=== PATIENT | female | born 1980 | race Caucasian/White ===

== ENCOUNTER 2018-11-15 22:36 | Emergency (ER) | payer BC ==
[~2018-11-15] VITALS: Ht 167.6 cm; Wt 114.9 kg
[~2018-11-15 22:36] MED LIST: ACET-6134 PO
[2018-11-15 22:40] VITALS: BP 111/74
--- NOTE | 2018-11-15 22:40 | NUR ---
TO LOBBY A/W BED, AMBULATORY
--- NOTE | 2018-11-15 23:10 | NUR ---
PT PRESENTS W/C/O LEFT SHOULDER PAIN ASSOCIATED W/ NUMBNESS FOR 2 MONTHS. PT HAS FULL ROM. +CMS. CAP REFILL<3. PERIPHERAL PULSES PRESENT. COLOR WNL. AAOX4, GCS 15
--- NOTE | 2018-11-15 23:57 | NUR ---
Dr. Alcaraz examining patient.
[2018-11-16] MEDS ORDERED: DIAZEPAM 5 MG TAB PO ONE (00:20)
[2018-11-16] MEDS ORDERED: KETOROLAC 30 MG/ML VIAL IM ONE (00:20)
--- NOTE | 2018-11-16 01:04 | NUR ---
PT RETURN FROM RAD
[2018-11-16] MEDS ORDERED: MORPHINE SULFATE 4 MG/ML SYR IM ONE (01:35)
[2018-11-16 02:11] VITALS: BP 116/69
--- NOTE | 2018-11-16 02:12 | NUR ---
Patient discharged with v/s stable. Written and verbal after care instructions given and explained. Patient alert, oriented and verbalized understanding of instructions. Ambulatory with steady gait. All questions addressed prior to discharge. ID band removed. Patient advised to follow up with PMD. Rx of VALIUM, NAPROXYN given. Patient educated on indication of medication including possible reaction and side effects. Opportunity to ask questions provided and answered.
== END 2018-11-16 02:12 | disposition home or self-care (01) ==
LOC: MED 22:36
DX: M54.12 Radiculopathy, cervical region (principal); M62.838 Other muscle spasm; Z88.0 Allergy status to penicillin; Z88.8 Allergy status to other drugs, medicaments and biological substances
CPT/HCPCS: 71046; 96372; 99283; J1885

== ENCOUNTER 2019-05-14 10:20 | Emergency (ER) | payer BC ==
[~2019-05-14] VITALS: Ht 167.6 cm; Wt 113.4 kg
[2019-05-14 11:03] VITALS: BP 122/56
--- NOTE | 2019-05-14 13:05 | NUR ---
PT AMBULATED TO ER BED 12
--- NOTE | 2019-05-14 13:15 | NUR ---
38 Y/O F C/C VOMITING/BODYACHES/COUGH X2 DAYS. PT NOT TAKEN FLU SHOT;FAMILY SICK AT HOME. PT TAKEN ADVIL WITH NO RELIEF. ALLERGIES PNC. NO HX. SX HERNIA REPAIR. NO RX. NO DIARRHEA. SIDE RAIL X1.
[2019-05-14] MEDS ORDERED: KETOROLAC 30 MG/ML VIAL IVP ONE (13:30)
[2019-05-14] MEDS ORDERED: NACL 0.9% 1,000 ML IV ONE (13:30)
[2019-05-14 14:09] LABS: BASOPHILS % (AUTO) 0.5 % (0.0-2.0); EOSINOPHILS % (AUTO) 0.1 % (0.0-4.0); HEMATOCRIT 42.8 % (36-48); HEMOGLOBIN 14.2 g/dL (12.0-16.0); LYMPHOCYTES # (AUTO) 0.7 K/uL (2.5-16.5); LYMPHOCYTES % (AUTO) 14.5 % (20.5-51.1); MEAN CORPUSCULAR HEMOGLOBIN 30 pg (27-31); MEAN CORPUSCULAR HGB CONC 33 g/dL (33-37); MEAN CORPUSCULAR VOLUME 91.3 fL (80-94); MONOCYTES # (AUTO) 0.6 K/uL (0.8-1.0); MONOCYTES % (AUTO) 13.2 % (1.7-9.3); NEUTROPHILS # (AUTO) 3.2 K/uL (1.8-7.7); NEUTROPHILS % (AUTO) 71.7 % (42.2-75.2); PLATELET COUNT (AUTO) 223 K/uL (140-450); RED BLOOD CELL COUNT(AUTO) 4.69 MIL/uL (4.20-5.40); RED CELL DISTRIBUTION WIDTH 14.4 % (11.6-13.7); WHITE BLOOD COUNT (AUTO) 4.5 K/uL (4.8-10.8)
[2019-05-14 14:26] LABS: ANION GAP 11.2 (8-16); CARBON DIOXIDE 26.4 mmol/L (21-32); CREATININE 1.2 mg/dL (0.6-1.3); POTASSIUM 3.6 mmol/L (3.5-5.1)
[2019-05-14 17:06] VITALS: BP 118/58
--- NOTE | 2019-05-14 17:07 | NUR ---
Patient discharged with v/s stable. Written and verbal after care instructions given and explained. Patient alert, oriented and verbalized understanding of instructions. Ambulatory with steady gait. All questions addressed prior to discharge. ID band removed. Patient advised to follow up with PMD. Rx of TAMIFLU/TESSALON PERLES/MOTRIN given. Patient educated on indication of medication including possible reaction and side effects. Opportunity to ask questions provided and answered.
== END 2019-05-14 17:07 | disposition home or self-care (01) ==
LOC: MED 10:20
DX: B34.9 Viral infection, unspecified (principal); Z88.5 Allergy status to narcotic agent; Z88.0 Allergy status to penicillin; Z79.899 Other long term (current) drug therapy
CPT/HCPCS: 36415; 71045; 80048; 84484; 85025; 93005; 96374; 99284; J1885; J7030; Q0092

== ENCOUNTER 2021-05-27 23:13 | Emergency (ER) | payer BC ==
[~2021-05-27] VITALS: Ht 165.1 cm; Wt 108.9 kg
[~2021-05-27 23:13] MED LIST changes: +ACET-10509 PO; -ACET-6134 PO
[2021-05-27] MEDS ORDERED: CIPR7.5S OT (23:40)
[2021-05-27] MEDS ORDERED: ONDANSETRON 4 MG ODT PO ONE (23:40)
[2021-05-27 23:41] VITALS: BP 134/86
--- NOTE | 2021-05-27 23:47 | NUR ---
patient to lobby
--- NOTE | 2021-05-27 23:49 | NUR ---
medicated per ermd orders. patient will be monitored for adverse effects.
[2021-05-28] MEDS ORDERED: PROCHLORPERAZINE 5 MG TAB PO ONE (04:00)
[2021-05-28] MEDS ORDERED: ONDA-188 SL (04:02)
[2021-05-28 04:20] VITALS: BP 134/86
--- NOTE | 2021-05-28 04:20 | NUR ---
Patient discharged with v/s stable. Written and verbal after care instructions given and explained. Patient alert, oriented and verbalized understanding of instructions. Ambulatory with steady gait. All questions addressed prior to discharge. ID band removed. Patient advised to follow up with PMD. Rx of zofran odt and ciprodex otic suspension given. Patient educated on indication of medication including possible reaction and side effects. Opportunity to ask questions provided and answered.
== END 2021-05-28 04:20 | disposition home or self-care (01) ==
LOC: MED 23:13
DX: U07.1 COVID-19 (principal); H60.92 Unspecified otitis externa, left ear; Z88.0 Allergy status to penicillin; Z88.8 Allergy status to other drugs, medicaments and biological substances
CPT/HCPCS: 81002; 81025; 87426; 87804; 99283; Q0162; Q0164

== ENCOUNTER 2022-04-07 15:48 | Emergency (ER) | payer BC ==
[~2022-04-07] VITALS: Ht 175.3 cm; Wt 90.7 kg
[~2022-04-07 15:48] MED LIST changes: +CIPR7.5S OT; +ONDA-188 SL
[2022-04-07 16:22] VITALS: BP 115/70
== END 2022-04-07 17:47 | disposition left against medical advice (07) ==
LOC: MED 15:48
DX: R11.10 Vomiting, unspecified (principal); Z53.21 Procedure and treatment not carried out due to patient leaving prior to being seen by health care provider